=== PATIENT | female | born 1935 | race Caucasian/White ===

== ENCOUNTER 2024-02-09 15:56 | Inpatient (IN) | payer OTHER, SELFPAY ==
[2024-02-08 14:34] VITALS: BP 197/104
[2024-02-08 15:49] VITALS: BP 186/90
[2024-02-08 16:00] VITALS: BP 147/95
[2024-02-08 16:04] LABS: % Basophils 0.4 % (0-2); % Eosinophils 1.1 % (0-6); % Immature Granulocytes 0.3 % (0-0.5); % Lymphocytes 13.5 % (20.5-51.1); % Monocytes 7.7 % (1.7-9.3); Absolute Eosinophils 0.1 10^3/uL (0-0.7); Absolute Monocytes 0.6 10^3/uL (0.1-0.6); Absolute Neutrophils 5.7 10^3/uL (1.4-6.5); Hemoglobin 13.7 g/dL (12.0-16.0); Mean Corp Hgb Conc. 33.4 g/dL (33.0-37.0); Mean Corpuscular Hgb 31.8 pg (27.0-31.0); Mean Corpuscular Volume 95.1 fL (81.0-99.0); Mean Platelet Volume 9.4 fL (7.4-10.4); Nucleated Red Blood Cells % 0 %; Platelet Count 216 10^3/uL (130-400); Red Blood Cell Count 4.31 10^6/uL (4.20-5.40); Red Cell Dist. Width 12.3 % (11.5-14.5); White Blood Cell Count 7.4 10^3/uL (4.8-10.8)
[2024-02-08 16:17] LABS: ALT (SGPT) 29 U/L (0-35); AST (SGOT) 31 U/L (14-36); Albumin 4.3 g/dl (3.5-5.0); Alkaline Phosphatase 118 U/L (38-126); Blood Urea Nitrogen 20 mg/dl (7-17); Calcium 9.4 mg/dl (8.4-10.2); Carbon Dioxide 30 mmol/L (22-30); Chloride 103 mmol/L (98-107); Glucose 113 mg/dl (70-99); Potassium 4.1 mmol/L (3.5-5.1); Sodium 142 mmol/L (135-145); Total Bilirubin 0.3 mg/dl (0.2-1.3); Total Protein 7.3 g/dl (6.3-8.2); eGFR > 60.00
[2024-02-08] MEDS: NSS 1000 IV (16:44)
[2024-02-08] MEDS: PROTONIX IV 80 MG IV (16:45)
--- NOTE | 2024-02-08 17:08 | ED.GENMED ---
History of Present Illness
General
Chief Complaint: Rectal Bleeding
Source: patient and family
Exam Limitations: none
Time Seen by Provider: 02/08/24 16:05
Nursing documentation reviewed up to this point in time: agreed with
History of Present Illness
History of Present Illness:
88-year-old female past medical history of diverticulosis, GERD hemorrhoids hypertension presenting to the emergency department with concerns of rectal bleeding starting this morning multiple episodes of dark brown mixed with red and clots.
Multiple episodes today denies any lightheaded chest pain shortness of breath no abdominal pain.
Past History
Past History
ED Past Medical History: Hypothyroidism; Negative Asthma, HTN, Hypercholesterolemia or NIDDM
ED Past Surgical History: None
Social History
Tobacco: Non-smoker
Alcohol: None
Drug: None
Personal:
Living: alone
Employment: Retired
Review of Systems
Review of Systems
Allergies reviewed?: Yes
All Other Systems: ROS reviewed and negative except as documented in HPI and ROS
Phy Exam
Physical Exam
Physical Exam:
GENERAL: Alert , in no apparent distress
EYE: pupils equal and reactive
NECK: Supple, no significant adenopathy.
ENT: o/p clr, mmm.
CARDIAC: Regular rate and rhythm .
LUNGS: Clear breath sounds bilaterally, no acute respiratory distress, no wheezes/rales/rhonchi
ABDOMEN: Rectal examination revealing dark brown stool guaiac positive with mixture of blood soft, without focal tenderness, no r/g, no cvat
NEUROLOGICAL: Alert and oriented, no focal neuro deficits
SKIN: Warm and dry, skin intact.
MUSCULOSKELETAL: No edema, well perfused.
PSYCH: Normal and appropriate interaction.
Course
Orders/Labs/Results
Orders:
Orders
02/08/24 15:51
Type And Crossmatch [Type+Screen] Urgent
Complete Blood Count/With Diff Urgent
Comprehensive Metabolic Panel Urgent
02/08/24 16:31
0.9% Sodium Chloride 1000 ml [Nss] 1,000 ml IV BOLUS
Pantoprazole [Protonix IV] 80 mg IV NOW STA
Abnormal Lab Results
02/08/24
15:51
MCH 31.8 H pg
(27.0-31.0)
Absolute Lymphs (auto) 1.0 L 10^3/uL
(1.2-3.4)
Neutrophils % 77.0 H %
(42.2-75.2)
Lymphocytes % 13.5 L %
(20.5-51.1)
BUN 20 H mg/dl
(7-17)
Glucose 113 H mg/dl
(70-99)
02/08/24 15:51
02/08/24 15:51
Vital Signs
Initial and Last Documented VS:
Initial Vital Signs
Temp Pulse Resp BP Pulse Ox
98.7 F 83 18 197/104 96
02/08/24 14:34 02/08/24 14:34 02/08/24 14:34 02/08/24 14:34 02/08/24 14:34
Last Documented Vital Signs
Temp Pulse Resp BP Pulse Ox
98.7 F 70 20 186/90 97
02/08/24 14:34 02/08/24 15:49 02/08/24 15:49 02/08/24 15:49 02/08/24 15:49
MDM/Problems Addressed
MDM/Problems Addressed:
88-year-old female presenting to the emergency department today with concerns of rectal bleeding since this morning. Brown to black stool mixed with red here on examination no abdominal pain started on Protonix and fluids otherwise hemoglobin 13.7
patient is hypertensive otherwise vital signs are normal. Plan to admit for monitoring and GI assessment.
*Critical Care Note
Total Time (30-74mins, 75-104mins- exclusive of procedures): Not Applicable
ED Attending Note
-
Portions of this chart may have been created with voice recognition software.� Occasional wrong word or��sound alike� substitutions may have occurred due to the inherent limitations of voice recognition software.
Discharge Plan
Departure
Patient Disposition: Admit
Date of Disposition: 02/08/24
Time of Disposition: 17:09
Admit to: Med/Surg
Admit to doctor: Lloyd
Presentation/result/management discussed w/ accepting MD/DO: Hospitalist
Patient with high blood pressure during this ER visit?: No
Condition: Good
Covid-19: Not Applicable
Discharge Problem:
GI bleed
Prescriptions:
No Action
multivitamin with folic acid [Tab-A-Marcella] 1 TABLET tablet
1 tab PO DAILY
losartan 50 mg Tablet
50 mg PO DAILY
bupropion HCl 75 mg Tablet
75 mg PO BID
metoprolol succinate [Toprol XL] 25 mg Tablet Extended Release 24 Hr
25 mg PO DAILY
risperidone [Risperdal] 1 mg Tablet
1 mg PO HS
mirtazapine 7.5 mg Tablet
7.5 mg PO HS
aripiprazole [Abilify] 2 mg Tablet
2 mg PO DAILY
Referrals:
Lennox Hernandez MD [Family Provider] -
Interventions
Interventions:
*Risk Screen - Suicide Last Done: 02/08/24 14:34
*General Assessment Last Done: 02/08/24 14:34
*Neglect/Abuse Screening Last Done: 02/08/24 15:46
ED- Fall Risk Assessment Last Done: 02/08/24 15:46
*ED COVID-19 Vaccine History Last Done: 02/08/24 14:34
BK-Drajkc-Wscvkiakol Assessment Last Done: 02/08/24 15:46
ED- Cardiac Assessment Last Done: 02/08/24 15:46
ED- Pulmonary Assessment Last Done: 02/08/24 15:46
Discharge Date and Time
Print Language: ROMANSH
--- NOTE | 2024-02-08 17:19 | HPS.HSE ---
Family Physician
-
Family Physician: Lennox Hernandez
Chief Complaint
-
rectal bleeding
History of Present Illness
88-year-old female past medical history of hypertension, hypothyroidism, history of GI bleeding secondary to diverticulosis, anxiety/depression, hypothyroidism presenting with rectal bleeding starting this morning. Patient states that the bleeding
feels like menstrual bleeding. She noticed blood with wiping and it continued even without bowel movements. The bleeding was dark red. She denies shortness of breath, chest pain or dizziness. Has abdominal pain. Denies nausea or vomiting. Does
not take any blood thinners.
She denies smoking or alcohol use.
Patient was admitted in 2019 with similar episode and had colonoscopy performed at that time which showed moderate diverticulosis, nonbleeding external hemorrhoids.
Medical History
Past Medical History
Past Medical History: Reports Other ( hypertension, hypothyroidism, history of GI bleeding secondary to diverticulosis, anxiety/depression, hypothyroidism)
Past Surgical History: Reports None
Social History
Tobacco: Non-smoker
Alcohol: None
Drug: None
Family History
Family History: Not pertinent
Allergies / Home Medications
Allergies reflects when Allergies were last updated in [facility].
Home Medications with original date entered in [facility]
Allergy/Medication List:
Allergies
Allergy/AdvReac Type Severity Reaction Status Date / Time
No Known Allergies Allergy Verified 02/08/24 14:38
Home Medications
multivitamin with folic acid 400 mcg tablet (Tab-A-Marcella) 1 tab PO DAILY 05/23/18
aripiprazole 2 mg tablet (Abilify) 2 mg PO DAILY 02/08/24
bupropion HCl 75 mg tablet 75 mg PO BID 02/08/24
losartan 50 mg tablet 50 mg PO DAILY 02/08/24
metoprolol succinate 25 mg tablet,extended release 24 hr (Toprol XL) 25 mg PO DAILY 02/08/24
mirtazapine 7.5 mg tablet 7.5 mg PO HS 02/08/24
risperidone 1 mg tablet (Risperdal) 1 mg PO HS 02/08/24
Review of Systems
-
History Source: Patient
A 12 point ROS was completed and negative except as noted: Yes
Constitutional: Reports No Symptoms
EENT: Reports No Symptoms
Respiratory: Reports No Symptoms
Cardiac: Reports No Symptoms
Abdomen/GI: Reports See HPI
: Reports No Symptoms
Musculoskeletal: Reports No Symptoms
Skin: Reports No Symptoms
Neurological: Reports No Symptoms
Endocrine: Reports No Symptoms
Hematologic/Lymphatic: Reports No Symptoms
Psych: Reports No Symptoms
Physical Exam
Vital Signs
Vital Signs
Temp Pulse Resp BP Pulse Ox
98.7 F 70 20 186/90 97
02/08/24 14:34 02/08/24 15:49 02/08/24 15:49 02/08/24 15:49 02/08/24 15:49
Physical Exam
General: Well Developed, Well Nourished and No Apparent Distress
HEENT: NormoCephalic, Moist mucous membranes and Atraumatic
Respiratory: Clear
Cardiac: S1/S2 and Regular Rhythm; No Murmur or Rub
GI: Soft, Non Tender, Non Distended and Normal Bowel Sounds; No Organomegaly
Rectal: Deferred by Provider
Musculoskeletal: No Clubbing, No Cyanosis and No Edema
Skin: No Rash
Neuro: Nonfocal/grossly intact
Laboratory Results
-
02/08/24 15:51
02/08/24 15:51
Laboratory Results
Total Bilirubin 0.3 mg/dl (0.2-1.3) 02/08/24 15:51
AST 31 U/L (14-36) 02/08/24 15:51
ALT 29 U/L (0-35) 02/08/24 15:51
Alkaline Phosphatase 118 U/L (38-126) 02/08/24 15:51
Data Reviewed
-
Lab Data: Labs Reviewed by me
Old Records: Reviewed
Impression/Plan
-
IMPRESSION:
PLAN:
# Dark/mixed red blood per rectum likely diverticular bleeding
# History of diverticulosis
-Hemoglobin 13.7
-Clear liquid diet, n.p.o. past midnight
-IV fluids given, hold further IV fluids given hypertension
-80 Protonix given, continue 40 IV twice daily
-CTA abdomen pelvis if persistent bleeding
-GI consulted
# Uncontrolled hypertension
# Essential hypertension
-Continue losartan, metoprolol
Anxiety/depression
-Continue bupropion, aripiprazole, mirtazapine, Risperdal
Full code
DVT prophylaxis�SCDs
Clear liquid diet
[2024-02-08 18:02] VITALS: BP 165/91
[2024-02-08] MEDS: WELLBUTRIN REGULAR RELEASE 75 MG PO (20:13)
[2024-02-08 20:20] VITALS: BP 152/88
[2024-02-08 20:21] VITALS: BMI 27.8
[2024-02-08] MEDS: RISPERDAL 1 MG PO (21:13)
[2024-02-08] MEDS: REMERON 7.5 MG PO (21:13)
--- NOTE | 2024-02-08 22:52 | PTCARENOTE ---
Pt arrived from ED via stretcher and walked into [facility]- safely. Pt oriented to room, call dominguez within reach, will continue to monitor.
[2024-02-08 23:54] VITALS: BP 156/78
[2024-02-09 03:54] VITALS: BP 123/61
[2024-02-09 07:15] LABS: % Basophils 0.6 % (0-2); % Eosinophils 2.4 % (0-6); % Immature Granulocytes 0.2 % (0-0.5); % Lymphocytes 19.1 % (20.5-51.1); % Monocytes 9.1 % (1.7-9.3); % Neutrophils 68.6 % (42.2-75.2); Absolute Eosinophils 0.2 10^3/uL (0-0.7); Absolute Lymphocytes 1.2 10^3/uL (1.2-3.4); Absolute Monocytes 0.6 10^3/uL (0.1-0.6); Absolute Neutrophils 4.3 10^3/uL (1.4-6.5); Hematocrit 36.6 % (37.0-47.0); Mean Corp Hgb Conc. 32.8 g/dL (33.0-37.0); Mean Corpuscular Volume 94.6 fL (81.0-99.0); Mean Platelet Volume 9.4 fL (7.4-10.4); Nucleated Red Blood Cells % 0 %; Platelet Count 186 10^3/uL (130-400); Red Blood Cell Count 3.87 10^6/uL (4.20-5.40); Red Cell Dist. Width 12.4 % (11.5-14.5); White Blood Cell Count 6.3 10^3/uL (4.8-10.8)
[2024-02-09 07:30] VITALS: BP 157/83
[2024-02-09 07:35] LABS: ALT (SGPT) 24 U/L (0-35); AST (SGOT) 24 U/L (14-36); Albumin 3.4 g/dl (3.5-5.0); Alkaline Phosphatase 88 U/L (38-126); Blood Urea Nitrogen 16 mg/dl (7-17); Calcium 8.8 mg/dl (8.4-10.2); Carbon Dioxide 29 mmol/L (22-30); Chloride 106 mmol/L (98-107); Estimated Creatinine Clearance 37 ml/min; Glucose 101 mg/dl (70-99); Potassium 3.8 mmol/L (3.5-5.1); Sodium 141 mmol/L (135-145); Total Bilirubin 0.4 mg/dl (0.2-1.3); eGFR 54.19
[2024-02-09] MEDS: ABILIFY 2 MG PO (09:47)
[2024-02-09] MEDS: COZAAR 50 MG PO (09:47)
[2024-02-09] MEDS: WELLBUTRIN REGULAR RELEASE 75 MG PO ×2 (09:47→20:41)
[2024-02-09] MEDS: PROTONIX IV 40 MG IV ×2 (09:48→20:41)
[2024-02-09] MEDS: NSS (PRESERVATIVE FREE) 10 ML IV ×2 (09:49→20:41)
[2024-02-09] MEDS: TOPROL XL 25 MG PO ×2 (09:49→21:15)
[2024-02-09] MEDS: DULCOLAX 10 MG RECTAL (09:49)
--- NOTE | 2024-02-09 09:58 | CON.GI ---
Addendum entered and electronically signed by MARI Saenz 02/09/24 15:51:
Patient with 2 brown BM after Dulcolax suppository. Discussed with RN, no bleeding. Will start Miralax, first dose now and continue tomorrow. Patient can advance to solid diet as per IM. Attempted to call daughter a second time. Left message on
machine. As office will be closed, asked that she call Nurses station for updates. RN updated. Will reach out to Medicine Attending for diet. Please call back if we can be of further assistance. Will sign off.
Addendum entered and electronically signed by Saeed Ramsay DO 02/09/24 10:52:
I saw and examined the patient.
The ETYMOLOGY PROFESSOR's note was reviewed and I agree with the note.
I saw and examined the patient.
The ETYMOLOGY PROFESSOR's note was reviewed and I agree with the note.
Comment: Ms. Gloria is a 88 y.o female with past medical history of HTN, hypothyroidism, anxiety/depression and previous GI Bleeding in 2019 (felt 2/2 presumed diverticular bleed) who presented to the ED at the direction of her PCP due to concern
for bright red blood per rectum. Patient reports painless, rectal bleeding during a brown bowel movement with bright red blood and small blood clot. No abdominal pain/discomfort or other nausea/vomiting. She denies any NSAIDs or other antiplatelets
or anticoagulants. No other changes in bowel habits and denies any constipation or looser stools. Last colonoscopy 04/2018 for rectal bleeding (fair prep, adequate to detect lesions > 6 mm) with extensive semi-liquid stool throughout the colon,
moderate diverticulosis in the sigmoid, descending and distal transverse colon and non-bleeding external hemorrhoids. At the direction of her PCP, she came to the ED for further evaluation. In the ED, patient was afebrile and HD-stable without
compensatory tachycardia. Labs notable for Hgb 13.7 (previously 12.7 back on 04/2018) and repeat Hgb 12.0 (with drop in all cell counts). No further bloody stools, rectal bleeding or overt hematochezia since admission. Rectal exam this AM with large
stool in rectal vault with scant red blood suspicious for perianal pathology 2/2 hemorrhoids (internal) versus stercoral ulceration. Much less likely diverticular in origin given her small volume rectal bleeding and stable H/h. Cannot definitively
rule out large polyps/lesions and/or mass especially given fair prep during prior colonoscopy however denies any weight loss or other evidence of KORY. Much less likely AVMs as without prior evidence of anemia. No concern for ischemic colitis.
Regardless, patient is refusing a colonoscopy and does not wish to have any further endoscopic interventions at this time. Reasonable given her advanced age, reassuring Hgb and without any further bleeding since admission.
Recommendations:
- Continue CLD this AM, may advance to regular diet as tolerated later today
- Stop IV PPI as consistent with LGIB
- Start bowel regimen with Dulcolax suppositories to clean out stool distally
- Once having BMs, would start Miralax 17 gm BiD to keep stools soft
- Trend Hgb with serial CBC q daily
- No plans for a colonoscopy and/or flex-sig at this time as patient declined any endoscopic procedures. Unable to reach family this AM. Will re-attempt to reach out later this afternoon
- If large volume hematochezia, HD-instability or significant drop in Hgb would obtain stat CTA in attempts of localization
- Rest of care as outlined below
Thank you for allowing me to participate in the care of this patient. Please do not hesitate to call for any further questions. GI team will continue to follow while inpatient.
Original Note:
Consultation
-
Date/Time Consultation Requested: 02/08/24 7240
Date/Time Consultation Performed: 02/09/24 0900
Requesting Provider: Dr. Desai
Performing Provider: Dr. Ramsay/MARI Peres
Reason for Consultation: rectal bleeding
Medical History
Chief Complaint / HPI
Chief Complaint: rectal bleeding
History of Present Illness:
88-year-old female with past medical history of hypertension, hypothyroidism, previous GI bleeding in 2019 likely secondary to diverticulosis, anxiety, depression who presents to the emergency room yesterday after seeking medical attention at her
primary care's office with reports of blood mixed in with her stool. Asked to evaluate for the same. The patient states that she had a bowel movement but noticed that there was blood within. Given her prior history she was advised by her PCP to
come to the emergency room. The patient has had no further signs of bleeding since arrival. The patient states that on occasion she does get diarrhea and will take a medication to stop this. She has not had this recently. She did have prior
episode of GI bleeding with colonoscopy performed in that time with small speck of blood noted in the colon at 14 cm in the region of the diverticulum but no stigmata of bleeding. The preparation of the colon was fair with stool in the entire
colon. The patient refuses repeat colonoscopy. She had a rectal performed in the emergency room that showed ' dark brown stool guaiac positive with mixture of blood soft'. She has had no bowel movements. He has remained on clear liquids with IV
fluids. Her hemoglobin has remained stable. This morning is 12.0 from 13.7 (with hydration). I performed a rectal myself that showed solid brown stool, large amount able to be moved around with some liquid brown stool around it, scant red blood.
To consider hemorrhoidal versus stercoral ulcer versus less likely diverticular given such small amount. Patient without any pain or tenderness. Her vital signs remained stable. She denies any fevers, chills, nausea, vomiting, melena, dysphagia
or odynophagia. No early satiety or unintentional weight loss. Again she is denying any procedures at this time. With such a large stool in her rectum, would like to clear this out. Discussed with patient. RN present. Will give Dulcolax
suppository. Patient agreeable.
Past Medical History
Past Medical History: HTN, Hypothyroidism and Other (Previous GI bleeding likely secondary diverticulosis, anxiety/depression)
Past Surgical History: None
Social History
Tobacco: Non-Smoker
Alcohol: None
Drug: None
Living: Alone
Family History
Family History: Other (No family history gastrointestinal malignancy or IBD)
Allergies / Home Medications
Allergy/AdvReac Type Severity Reaction Status Date / Time
No Known Allergies Allergy Verified 02/08/24 14:38
�Medication �Instructions �Recorded
multivitamin with folic acid 400 1 tab PO DAILY 05/23/18
mcg tablet (Tab-A-Marcella)
aripiprazole 2 mg tablet (Abilify) 2 mg PO DAILY 02/08/24
bupropion HCl 75 mg tablet 75 mg PO BID 02/08/24
losartan 50 mg tablet 50 mg PO DAILY 02/08/24
metoprolol succinate 25 mg 25 mg PO DAILY 02/08/24
tablet,extended release 24 hr
(Toprol XL)
mirtazapine 7.5 mg tablet 7.5 mg PO HS 02/08/24
risperidone 1 mg tablet (Risperdal) 1 mg PO HS 02/08/24
Review of Systems
-
All other systems: A 12 pt ROS was Negative except as stated above in HPI
Vital Signs
Temp Pulse Resp BP Pulse Ox
97.8 F 72 16 157/83 95
02/09/24 07:30 02/09/24 07:30 02/09/24 07:30 02/09/24 07:30 02/09/24 07:30
Physical Exam
Exam
General: No Apparent Distress
HEENT: Anicteric
Respiratory: Clear
Cardiac: Regular Rhythm
GI: Soft, Non Tender, Non Distended and Normal Bowel Sounds
Rectal: Other (Brown, large amount of solid stool in rectal vault, mobile, liquid brown stool around this, scant amount of red blood)
Skin: Warm and Dry
Neuro: AO x 3
Psych: Calm
Results
WBC 6.3 10^3/uL (4.8-10.8) 02/09/24 06:27
Hgb 12.0 g/dL (12.0-16.0) 02/09/24 06:27
Hct 36.6 % (37.0-47.0) L 02/09/24 06:27
MCV 94.6 fL (81.0-99.0) 02/09/24 06:27
Plt Count 186 10^3/uL (130-400) 02/09/24 06:27
Absolute Neuts (auto) 4.3 10^3/uL (1.4-6.5) 02/09/24 06:27
Sodium 141 mmol/L (135-145) 02/09/24 06:27
Potassium 3.8 mmol/L (3.5-5.1) 02/09/24 06:27
Chloride 106 mmol/L (98-107) 02/09/24 06:27
Carbon Dioxide 29 mmol/L (22-30) 02/09/24 06:27
BUN 16 mg/dl (7-17) 02/09/24 06:27
Creatinine 1.0 mg/dL (0.6-1.0) 02/09/24 06:27
Calcium 8.8 mg/dl (8.4-10.2) 02/09/24 06:27
Total Bilirubin 0.4 mg/dl (0.2-1.3) 02/09/24 06:27
AST 24 U/L (14-36) 02/09/24 06:27
ALT 24 U/L (0-35) 02/09/24 06:27
Alkaline Phosphatase 88 U/L (38-126) 02/09/24 06:27
Diagnostic Image Results:
None this admission
Prior GI Procedures:
EGD: Never
Colonoscopy: 05/25/2018 (Dr. Sanchez): - Preparation of the colon was fair.
- Stool in the sigmoid colon, in the descending colon,
in the transverse colon, in the ascending colon and in
the cecum.
- Moderate diverticulosis in the sigmoid colon. There
was evidence of diverticular spasm.
- Non-bleeding external hemorrhoids.
- Diverticulosis in the descending colon and in the
distal transverse colon.
- No specimens collected.
Assessment / Plan
-
88-year-old female with past medical history of hypertension, hypothyroidism, previous GI bleeding in 2019 likely secondary to diverticulosis, anxiety, depression who presents to the emergency room yesterday after seeking medical attention at her
primary care's office with reports of blood mixed in with her stool. Asked to evaluate for the same. Her hemoglobin has remained stable. This morning is 12.0 from 13.7 (with hydration). I performed a rectal myself that showed solid brown stool,
large amount able to be moved around with some liquid brown stool around it, scant red blood. To consider hemorrhoidal versus stercoral ulcer versus less likely diverticular given such small amount. Patient without any pain or tenderness. Her
vital signs remained stable. She denies any fevers, chills, nausea, vomiting, melena, dysphagia or odynophagia. No early satiety or unintentional weight loss. Again she is denying any procedures at this time. With such a large stool in her
rectum, would like to clear this out. Discussed with patient. RN present. Will give Dulcolax suppository. Patient agreeable.
Impression:
Rectal bleeding
-- Solid stool in rectal vault, brown, liquid stool around it, scant red blood. To consider hemorrhoidal versus stercoral ulcer versus diverticular.
Plan:
-Continue clear liquid diet
-Dulcolax suppository to clear out fecal burden
-Trend labs
-If with active GI bleeding then imaging. Or with any severe abdominal pain, imaging.
-Patient refusing any procedures.
-I did try to attempt to call daughter to discuss further and update. Tere Gray [phone]. Left message to call our office.
-Further recommendations to be forthcoming
-
-
Thank you for consultation and allowing me to participate in the patient's care. Please call the environmental sustainability manager GI physician during the after hours with any questions or concerns.
[2024-02-09] MEDS: THERAGRAN PO (10:01)
[2024-02-09 11:30] VITALS: BP 157/89
--- NOTE | 2024-02-09 15:33 | W.PN.HOSP.TC ---
Addendum entered and electronically signed by Lennox Romo MD 02/09/24 15:52:
as per Robbin Parrish DO, pt should be changed to admit
Original Note:
Today's Communication/Plan
-
continue laxatives
Assessment / Plan
Assessment / Plan
# Dark/mixed red blood per rectum likely stercoral ulceration
as per GI, rectal exam demonstrated large stool in rectal vault
# History of diverticulosis
-Hemoglobin 13.7-->12.0
-Clear liquid diet, now advanced to regular diet
-IV fluids given, hold further IV fluids given hypertension
-80 Protonix given, as per GI, should stop PPI as this is not UGI bleed
-CTA abdomen pelvis if persistent bleeding
-GI consulted, input appreciated
if tolerates diet, continues to move bowels, potential dc tomorrow
# Uncontrolled hypertension
# Essential hypertension
-Continue losartan, metoprolol
Anxiety/depression
-Continue bupropion, aripiprazole, mirtazapine, Risperdal
Full code
DVT prophylaxis�SCDs
Clear liquid diet advanced to regular
Anticipated Discharge: Within 24 hours
Subjective/Interval History
-
Date of Service: February 09, 2024
Dgt present in room, has concerns
Objective Data
-
Labs:
Laboratory Results
02/09/24
06:27
WBC 6.3
Hgb 12.0
Hct 36.6 L
Plt Count 186
Sodium 141
Potassium 3.8
Chloride 106
Carbon Dioxide 29
BUN 16
Creatinine 1.0
Glucose 101 H
Calcium 8.8
Total Bilirubin 0.4
AST 24
ALT 24
Alkaline Phosphatase 88
Vital Signs:
Vital Signs
Temp Pulse Resp BP Pulse Ox
97.5 F 74 18 157/89 96
02/09/24 11:30 02/09/24 11:30 02/09/24 11:30 02/09/24 11:30 02/09/24 11:30
I&O
02/08/24 02/09/24 02/10/24
06:59 06:59 06:59
Intake Total 240 / 240
Balance 240 / 240
Review of Systems
-
History Source: Patient and Family (dgt in room)
Constitutional: Denies Fever
EENT: Reports No Symptoms Reported
Respiratory: Reports No Symptoms
Cardiac: Reports No Symptoms
Abdomen/GI: Reports Constipated (no further bloody stools since admission, has had 2 BM's since admission) and Bloody Stools (none since admission)
Physical Exam
-
General: Well Developed, Well Nourished and No Apparent Distress
HEENT: Normocephalic, Atraumatic and Moist Mucous Membranes
Respiratory: Clear to Auscultation; Negative Wheezes, Rales or Rhonchi
Cardiac: Regular Rhythm and S1/S2
GI: Soft, Nontender and Nondistended
Musculoskeletal: No Clubbing, No Cyanosis and No Edema
Neuro: Awake, Alert and Oriented
--- NOTE | 2024-02-09 15:38 | CM ---
CM met with Sabrina and her daughter at bedside to complete IA.
Sabrina lives at [facility], a [facility]. She lives in her apartment and goes to the dining room for meals.
Sabrina is (I) amb and adls; family is supportive.
Plan: Return to [facility] when medically stable. Pt's son-in-law will provide transport home at discharge.
[2024-02-09 15:45] VITALS: BP 158/86
[2024-02-09] MEDS: MIRALAX 17 GRAMS PO (16:28)
[2024-02-09] MEDS: RISPERDAL 1 MG PO (16:29)
[2024-02-09 19:00] VITALS: BP 155/93
[2024-02-09] MEDS: REMERON 7.5 MG PO (21:15)
[2024-02-09 23:00] VITALS: BP 148/73
[2024-02-10 03:00] VITALS: BP 134/68
[2024-02-10 06:26] VITALS: BMI 27.0
[2024-02-10 07:30] VITALS: BP 132/75
[2024-02-10 07:54] LABS: Hematocrit 38.7 % (37.0-47.0); Hemoglobin 12.8 g/dL (12.0-16.0); Mean Corp Hgb Conc. 33.1 g/dL (33.0-37.0); Mean Corpuscular Hgb 31.4 pg (27.0-31.0); Mean Corpuscular Volume 95.1 fL (81.0-99.0); Mean Platelet Volume 9.1 fL (7.4-10.4); Platelet Count 182 10^3/uL (130-400); Red Blood Cell Count 4.07 10^6/uL (4.20-5.40); Red Cell Dist. Width 12.5 % (11.5-14.5); White Blood Cell Count 6.7 10^3/uL (4.8-10.8)
[2024-02-10] MEDS: NSS (PRESERVATIVE FREE) 10 ML IV (09:24)
[2024-02-10] MEDS: THERAGRAN 1 TABLET PO (09:25)
[2024-02-10] MEDS: WELLBUTRIN REGULAR RELEASE 75 MG PO (09:25)
[2024-02-10] MEDS: PROTONIX IV 40 MG IV (09:25)
[2024-02-10] MEDS: MIRALAX 17 GRAMS PO (09:25)
[2024-02-10] MEDS: COZAAR 50 MG PO (09:25)
[2024-02-10] MEDS: ABILIFY 2 MG PO (09:26)
--- NOTE | 2024-02-10 10:47 | W.PN.HOSP.TC ---
Today's Communication/Plan
-
dc to home
Assessment / Plan
Assessment / Plan
# Dark/mixed red blood per rectum likely stercoral ulceration
as per GI, rectal exam demonstrated large stool in rectal vault. No further bleeding
# History of diverticulosis
-Hemoglobin 13.7-->12.0
-Clear liquid diet, now advanced to regular diet, which she is tolerating
-IV fluids given, hold further IV fluids given hypertension
-80 Protonix given, as per GI, should stop PPI as this is not UGI bleed
-CTA abdomen pelvis if persistent bleeding
-GI consulted, input appreciated
Pt is absolutely insistent to be discharged, will comply
# Essential hypertension
currently well controlled
-Continue losartan, metoprolol
Anxiety/depression
-Continue bupropion, aripiprazole, mirtazapine, Risperdal
Full code
DVT prophylaxis�SCDs
Clear liquid diet advanced to regular
Will dc now
Call placed and discussed with [id number]-[id number]
Anticipated Discharge: Today
Subjective/Interval History
-
Date of Service: February 10, 2024
No BM yet today,had 2 brown ones last evening
Objective Data
-
Labs:
Laboratory Results
02/10/24
07:42
WBC 6.7
Hgb 12.8
Hct 38.7
Plt Count 182
Vital Signs:
Vital Signs
Temp Pulse Resp BP Pulse Ox
97.8 F 68 16 132/75 94
02/10/24 07:30 02/10/24 09:25 02/10/24 07:30 02/10/24 09:25 02/10/24 07:30
I&O
02/09/24 02/10/24 02/11/24
06:59 06:59 06:59
Intake Total 240 / 240 840 / 840
Balance 240 / 240 840 / 840
Review of Systems
-
History Source: Patient and Family (dgt in room)
Constitutional: Denies Fever
EENT: Reports No Symptoms Reported
Respiratory: Reports No Symptoms
Cardiac: Reports No Symptoms
Abdomen/GI: Reports Constipated (no further bloody stools since admission, has had 2 BM's since admission) and Bloody Stools (none since admission)
Physical Exam
-
General: Well Developed, Well Nourished and No Apparent Distress
HEENT: Normocephalic, Atraumatic and Moist Mucous Membranes
Respiratory: Clear to Auscultation; Negative Wheezes, Rales or Rhonchi
Cardiac: Regular Rhythm and S1/S2
GI: Soft, Nontender, Nondistended and Normal Bowel Sounds
Musculoskeletal: No Clubbing, No Cyanosis and No Edema
Neuro: Awake, Alert and Oriented
--- NOTE | 2024-02-10 11:11 | W.DS.TRANS ---
DC Summary - [id number] Administrator
-
Discharge Instructions:
Discharge Diagnosis/Procedures Stool burden
Diet Regular
Activity As tolerated
Driving Restrictions No driving
Bathing Restrictions None
Blood Work CBC, BMP
Others Tests consider CT scan of abd/pelvis if remains a
problem
Instructions:
Stand-Alone Forms:
Changes to Home Medications: Yes
Discharge Medications:
DC Medications w/original date entered in [facility]
multivitamin with folic acid 400 mcg tablet (Tab-A-Marcella) 1 tab PO DAILY 05/23/18
aripiprazole 2 mg tablet (Abilify) 2 mg PO DAILY 02/08/24
bupropion HCl 75 mg tablet 75 mg PO BID 02/08/24
losartan 50 mg tablet 50 mg PO DAILY 02/08/24
metoprolol succinate 25 mg tablet,extended release 24 hr (Toprol XL) 25 mg PO DAILY 02/08/24
mirtazapine 7.5 mg tablet 7.5 mg PO HS 02/08/24
risperidone 1 mg tablet (Risperdal) 1 mg PO HS 02/08/24
docusate sodium 100 mg capsule (Colace) 100 mg PO BID #60 caps 02/10/24
polyethylene glycol 3350 17 gram oral powder packet 17 g PO DAILY #30 ea 02/10/24
Home Medication Changes
added Miralax and bid Colace
Pending Results: No
[2024-02-10 11:30] VITALS: BP 153/85
[2024-02-10 13:18] VITALS: BP 163/95
== END 2024-02-10 13:24 | disposition home or self-care (01) | DRG 378 ==
LOC: 3 WEST ACU 15:56
PROVIDERS: ADMITTING PHYSICIAN Hospitalist; ATTENDING PHYSICIAN Internal Medicine; EMERGENCY PHYSICIAN Emergency Medicine; FAMILY PHYSICIAN Family Medicine; OTHER PHYSICIAN Student in an Organized Health Care Education/Training Program
DX: K57.31 Diverticulosis of large intestine without perforation or abscess with bleeding (principal); K63.3 Ulcer of intestine; I10 Essential (primary) hypertension; F32.A Depression, unspecified; F41.9 Anxiety disorder, unspecified; Z59.89 Other problems related to housing and economic circumstances
CPT/HCPCS: 80053; 85025; 85027; 86850; 86900; 86901; 96361; 96374; 99285